=== PATIENT | female | born 1930 | race Caucasian/White ===

== ENCOUNTER → 2019-03-11 13:00 | Outpatient (CLI) | payer MEDICARE, OTHER ==
[2016-02-24 15:25] VITALS: BMI 25.0
[~2019-03-11 13:00] MED LIST: ALENDRONATE SOD70 MG PO; ASPIRIN EC81 M1 PO; EFFEXOR XR150 MG PO; EVISTA60 MG PO; FISH OIL 1,0001 CA1 PO; ICAPS AREDS1 TAB.SA PO; MULTI-DAY VITAM1 TAB PO; OMEPRAZOLE20 M1 PO; OS-CAL500 MG PO; PERCOCET 5-3251 TAB PO
== END | disposition home or self-care (01) ==
LOC: D.US 13:00
PROVIDERS: ATTEND Nurse Practitioner Family
DX: R60.0 Localized edema (principal)

== ENCOUNTER 2019-05-07 13:08 | Emergency (ER) | payer MEDICARE, OTHER ==
[~2019-05-07] VITALS: Ht 165.1 cm; Wt 72.7 kg
[2019-05-07 13:19] VITALS: Ht 165.1 cm; Wt 72.7 kg
[2019-05-07] MEDS ORDERED: ACETAMINOPHEN500 M1 PO (14:27)
[2019-05-07] MEDS ORDERED: IBUPROFEN400 MG PO (14:27)
[2019-05-07] MEDS ORDERED: CYCLOBENZAPRINE10 MG PO (14:27)
[2019-05-07 14:51] LABS: CALC OSMOLALITY 282 mosm/kg (275-300); CALCIUM 8.7 mg/dL (8.5-10.1); CARBON DIOXIDE 28.3 mmol/L (21.0-32.0); CHLORIDE - SERUM 105 mmol/L (98-107); CREATININE - SERUM 0.6 mg/dL (0.6-1.3); GLUCOSE 130 mg/dL (74-106); POTASSIUM - SERUM 4.4 mmol/L (3.5-5.1); SODIUM 140 mmol/L (136-145); UREA NITROGEN 18 mg/dL (7-18); eGFR NON AFRICAN AMERICAN > 90 mL/min (90-120)
[2019-05-07 14:55] LABS: BASOPHILS 0.3 % (0-2); EOSINOPHILS 1.2 % (0-7); IMMATURE GRANULOCYTES 0.2 % (0-5); LYMPHOCYTES 23.2 % (15-50); MCH 28.4 pg (26.0-34.0); MCHC 31.7 g/dL (31.0-37.0); MCV 89.7 fL (80.0-100.0); MEAN PLATELET VOLUME 9.9 fL (7.4-10.4); MONOCYTES 8.6 % (2-11); NEUTROPHILS 66.5 % (40-80); RBC 4.57 10x6/uL (4.00-5.40); WBC 5.9 10x3/uL (4.8-10.8)
[2019-05-07 14:59] LABS: ALBUMIN 3.3 g/dL (3.4-5.0); ALKALINE PHOSPHATASE 54 U/L (46-116); ALT (SGPT) 19 U/L (10-68); BILIRUBIN - TOTAL 0.34 mg/dL (0.2-1.3); PLATELET COUNT 165 10x3/uL (130-400); PROTEIN - SERUM 6.5 g/dL (6.4-8.2)
[2019-05-07 15:36] VITALS: BP 159/54
== END 2019-05-07 15:37 | disposition home or self-care (01) ==
LOC: D.ER 13:08
PROVIDERS: Family Medicine
DX: M71.21 Synovial cyst of popliteal space [Baker], right knee (principal); R79.89 Other specified abnormal findings of blood chemistry; M79.604 Pain in right leg; K21.9 Gastro-esophageal reflux disease without esophagitis

== ENCOUNTER → 2019-06-03 09:38 | Outpatient (CLI) | payer MEDICARE, OTHER ==
[2019-05-07 13:19] VITALS: BMI 26.6
[~2019-06-03 09:38] MED LIST changes: +ACETAMINOPHEN500 M1 PO; +CYCLOBENZAPRINE10 MG PO; +IBUPROFEN400 MG PO
== END | disposition home or self-care (01) ==
LOC: D.MRI 09:38
PROVIDERS: ATTEND Nurse Practitioner Family
DX: M17.11 Unilateral primary osteoarthritis, right knee (principal)